=== PATIENT | male | born 2000 | race African-American/Black ===

== ENCOUNTER 2022-02-12 22:41 | Emergency (ER) | payer OTHER ==
[~2022-02-12] VITALS: Ht 170.2 cm; Wt 82.0 kg
[2022-02-13 01:59] LABS: HEMATOCRIT. 43.2 % (42.0-52.0); HEMOGLOBIN. 14.3 g/dL (14.0-18.0); MEAN CORPUSCULAR VOLUME 81.6 fL (80.0-94.0); MEAN PLATELET VOLUME 8.4 fl (7.4-10.4); PLATELET 265 x1000/uL (130-400); RED BLOOD CELL COUNT 5.29 mill/uL (4.7-6.1); RED CELL DISTRIBUTION WIDTH 13.9 % (11.6-14.6)
[2022-02-13 02:09] LABS: CHLORIDE 102 mEq/L (98-107)
[2022-02-13 02:17] LABS: ETHANOL BLOOD < 10 mg/dL
[2022-02-13 02:43] LABS: CLARITY URINE CLEAR (CLEAR); COLOR URINE YELLOW (YELLOW); KETONES URINE NEGATIVE (NEGATIVE); LEUKOCYTE ESTERASE URINE NEGATIVE (NEGATIVE); NITRITE URINE NEGATIVE (NEGATIVE); OCCULT BLOOD URINE NEGATIVE (NEGATIVE); PROTEIN URINE NEGATIVE (NEGATIVE); SPECIFIC GRAVITY URINE 1.004 (1.005-1.030); UROBILINOGEN URINE 0.2 E.U./dL (0.2-1.0)
[2022-02-13 02:53] LABS: *AMPHETAMINES SCREEN URINE NEGATIVE (NEGATIVE); *BARBITURATES SCREEN URINE NEGATIVE (NEGATIVE); *BENZODIAZEPINES SCREEN URINE NEGATIVE (NEGATIVE); *COCAINE SCREEN URINE NEGATIVE (NEGATIVE); CANNABINOID URINE SCREEN NEGATIVE (NEGATIVE); METHADONE URINE SCREEN NEGATIVE (NEGATIVE); OPIATES URINE SCREEN NEGATIVE (NEGATIVE); PHENCYCLIDINE URINE SCREEN NEGATIVE (NEGATIVE)
[2022-02-13 03:42] LABS: PLATELET ESTIMATE NORMAL
[2022-02-13 13:55] VITALS: BP 122/72
== END 2022-02-13 14:10 | disposition home or self-care (01) ==
LOC: ER 22:41 → EDSEX 22:41 → ER 02-13 14:10
DX: Z00.8 Encounter for other general examination (principal); R46.2 Strange and inexplicable behavior; R41.82 Altered mental status, unspecified
CPT/HCPCS: 36415; 80053; 80305; 80320; 81003; 85025; 99285; G0480